=== PATIENT | male | born 1980 | race Caucasian/White ===

== ENCOUNTER 2021-10-22 10:08 | Emergency (ER) | payer SELFPAY ==
[2021-10-22] MEDS ORDERED: Oxymetazoline HCl 0.05% (30 ML BOT) ONE (11:14)
[2021-10-22] MEDS ORDERED: cloNIDine 0.1 MG TAB ONE (11:14)
[2021-10-22 11:58] LABS: #Basophils 0.1 thou/uL (0.0-0.2); #Eosinphils 0.3 thou/uL (0.0-0.7); #Lymphocytes 3.2 thou/uL (1.20-3.40); #Monocytes 1.4 thou/uL (0.11-0.59); #Neutrophils 13.7 thou/uL (1.40-6.50); %Basophils 0.7 % (0.0-1.0); %Eosinophils 1.6 % (0.0-10.0); %Lymphocytes 16.9 % (21.0-51.0); %Monocytes 7.7 % (0.0-10.0); %Neutrophils 73.1 % (42.0-75.0); Hemoglobin 14.4 g/dL (14.0-18.0); Mean Corpuscular Hemoglobin 29.5 pg (27.0-31.0); Mean Corpuscular Volume 89.6 fL (78.0-98.0); Mean Platelet Volume 8.6 fL (7.4-10.4); Platelet Count 371 thou/uL (130-400); Red Blood Cell (RBC) Count 4.86 mill/uL (4.70-6.10); White Blood Cell (WBC) Count 18.8 thou/uL (4.8-10.8)
== END 2021-10-22 14:14 | disposition home or self-care (01) ==
LOC: ERS 10:08
DX: J30.9 Allergic rhinitis, unspecified (principal); I10 Essential (primary) hypertension; R04.0 Epistaxis
CPT/HCPCS: 36415; 85025; 99283